=== PATIENT | female | born 1980 | race Caucasian/White ===

== ENCOUNTER 2024-11-24 16:24 | Emergency (ER) | payer OTHER, SELFPAY ==
[2024-11-24 16:37] VITALS: BP 128/87
[2024-11-24 16:55] LABS: Urine Character Bloody (Clear)
[2024-11-24 17:07] LABS: Urine Red Blood Cell >100 /HPF (0-2)
--- NOTE | 2024-11-24 17:25 | ED.GENMED ---
History of Present Illness
General
Chief Complaint: Urinary Symptoms
Source: patient
Exam Limitations: none
Time Seen by Provider: 11/24/24 16:59
Nursing documentation reviewed up to this point in time: agreed with
History of Present Illness
History of Present Illness:
Patient is a healthy 44-year-old female who presents to the emergency department with 1 day of dysuria and gross hematuria. Patient states while at work this morning she went to the bathroom and had significant burning while she was urinating. She
then noticed that her urine had a pink tinge in color. 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 She also reports passing a few small clots. She describes a sharp
pain which radiates into her lower abdomen after urinating.
She was seen by her primary care provider this afternoon where they performed a urinalysis which showed evidence of infection. She was given a prescription for Macrobid. She was also found to have protein in her urine and therefore was referred to
the emergency department for imaging.
Patient denies any fever or back pain. She has not had any vomiting. No abnormal vaginal bleeding or discharge.
Past History
Past History
ED Past Medical History: Other (admits to being an anxious person)
Social History
Tobacco: Non-smoker
Alcohol: None
Personal:
Living: with family
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
Family History
Family History: Sudden (brother age 36 '?sleep apnea?, heart attack?' states his did not do autopsy) and Other (Father with MS, still alive, mom healthy)
Review of Systems
Review of Systems
Allergies reviewed?: Yes
All Other Systems: ROS reviewed and negative except as documented in HPI and ROS
Phy Exam
Physical Exam
Physical Exam:
Vitals: Tachycardic on arrival however improved by my assessment. Afebrile
General: Patient is well appearing, no acute distress. Nontoxic appearing
Skin: Warm and dry, no rashes or lesions
Head: Normocephalic, atraumatic
Eyes: Sclera nonicteric. EOMs intact. No nystagmus.
Throat: Protecting airway
Neck: Normal ROM, no cervical spine tenderness, no meningismus
Cardiac: Regular rate and rhythm, no murmurs.
Pulm: Normal respiratory effort, no wheezes, rales, rhonchi heard on exam
Abdomen: Abdomen soft. Mild tenderness in suprapubic region. No rebound tenderness or guarding. No CVA tenderness.
Extremities: No evidence of cyanosis or edema
Neuro: AAOx3. Grossly intact.
Psychiatric: Normal affect.
Course
Orders/Labs/Results
Orders:
Orders
11/24/24 16:46
Urinalysis Reflex To Culture Urgent
Date Specimen was Collected: 11/24/24
Time Specimen was Collected: 16:41
Urine Microscopic Reflex Cult Urgent
Urine Culture Urgent
ANA LILIA Source: U
Specimen Description:
Date Specimen was Collected: 11/24/24
Time Specimen was Collected: 16:41
11/24/24 17:12
Abdomen/Pelvis wo Contrast CT [CT Abd/pelvis Wo Iv Cont] Urgent
Comment:
Reason For Exam: Dysuria, hematuria, hx kidney stones
0.9% Sodium Chloride 1000 ml [Nss] 1,000 ml IV BOLUS
11/24/24 17:14
Ketorolac [Toradol] 15 mg IV NOW STA
Test Result ONCE
11/24/24 17:30
Complete Blood Count/With Diff Urgent
Comprehensive Metabolic Panel Urgent
HCG, Serum Qualitative Screen Urgent
11/24/24 21:43
Add On - Microbiology Urgent
Tests Added?: urine culture
Abnormal Lab Results
11/24/24 11/24/24
16:46 17:30
WBC 11.3 H 10^3/uL
(4.8-10.8)
RBC 4.15 L 10^6/uL
(4.20-5.40)
Hgb 11.3 L g/dL
(12.0-16.0)
Hct 34.3 L %
(37.0-47.0)
MCHC 32.9 L g/dL
(33.0-37.0)
MPV 11.2 H fL
(7.4-10.4)
Abs Immat Gran (auto) 0.1 H 10^3/uL
(0-0.05)
Absolute Neuts (auto) 9.6 H 10^3/uL
(1.4-6.5)
Absolute Lymphs (auto) 0.9 L 10^3/uL
(1.2-3.4)
Absolute Monos (auto) 0.8 H 10^3/uL
(0.1-0.6)
Neutrophils % 84.3 H %
(42.2-75.2)
Lymphocytes % 8.2 L %
(20.5-51.1)
Sodium 134 L mmol/L
(135-145)
Ur Occult Blood Reflex 4+ A
(Negative)
Leukocyte Esterase Rfl 3+ A
(Negative)
Urine RBC >100 A /HPF
(0-2)
Urine Albumin (Reflex) 4+ A
(Neg - Trace)
11/24/24 17:30
11/24/24 17:30
Vital Signs
Initial and Last Documented VS:
Initial Vital Signs
Temp Pulse Resp BP Pulse Ox
99.1 F 113 18 128/87 99
11/24/24 16:37 11/24/24 16:37 11/24/24 16:37 11/24/24 16:37 11/24/24 16:37
Last Documented Vital Signs
Temp Pulse Resp BP Pulse Ox
99.1 F 104 18 105/73 100
10/13/25 16:37 11/24/24 19:46 11/24/24 19:46 11/24/24 19:43 11/24/24 19:44
MDM/Problems Addressed
Differential Diagnosis Includes:
Not limited to: UTI, pyelonephritis, renal colic, vaginitis, ovarian cyst, etc.
MDM/Problems Addressed:
44-year-old female presents with one day of dysuria and gross hematuria. She denies fever, flank pain, vomiting, or other systemic symptoms. Notably, she has a history of nephrolithiasis.
On exam, she is non-toxic appearing, afebrile, and hemodynamically stable. Abdomen is benign with no CVA tenderness. While she was initially tachycardic on arrival, this resolved during her ED stay.
Laboratory evaluation shows very mild leukocytosis. Chemistry panel is within normal limits. Urinalysis reveals many RBCs and 3+ leukocyte esterase, consistent with a urinary tract infection.
Given her history of kidney stones and the presence of gross hematuria, a noncontrast CT abdomen/pelvis was obtained to rule out nephrolithiasis or obstructive uropathy. Imaging shows no stones or hydronephrosis but is consistent with findings of
acute cystitis.
There is no evidence of ascending infection or complicated pyelonephritis. Hemoglobin is stable. The patient is tolerating oral intake and ambulating without issue. She was previously started on antibiotics by her PCP; these will be continued.
Pyridium was added for symptomatic relief.
Patient is stable for discharge with strict return precautions and instructions to follow up with her PCP to monitor for resolution of proteinuria or hematuria post-infection.
Chronic conditions affecting care:
N/A
Acute Exacerbation and/or Progression of Chronic Illness:
N/A
*Radiology
Radiology exam reviewed: radiology read reviewed
*Pulse Oximetry
SaO2: 99
Oxygen Mode of Delivery: Room air
Patient hypoxic: no
*EKG
Interpreted by ED Provider?: NA
*Automotive Service Advisor Interpretation
Rate: Automotive Service Advisor- N/A
*Critical Care Note
Total Time (30-74mins, 75-104mins- exclusive of procedures): Not Applicable
ED Attending Note
-
Portions of this chart may have been created with voice recognition software.� Occasional wrong word or��sound alike� substitutions may have occurred due to the inherent limitations of voice recognition software.
Discharge Plan
Departure
Patient Disposition: Home (Routine Discharge)
Date of Disposition: 11/24/24
Time of Disposition: 19:01
Patient with high blood pressure during this ER visit?: No
Condition: Good
Discharge Problem:
Acute UTI
Instructions: Urinary Tract Infection, Adult (DC), Blood in the Urine (Hematuria), Adult (DC)
Prescriptions:
New
phenazopyridine [Pyridium] 200 mg tablet
200 mg PO TID PRN (Reason: Pain) Qty: 6 0RF
No Action
acetaminophen [Tylenol Extra Strength] 500 MG tablet
1,000 mg PO Q6HPRN PRN (Reason: pain)
cyanocobalamin (vitamin B-12) 1,000 MCG/ML solution
1,000 mcg SC .EVERY3 WKS
Patient Comments:
Pt states she hasn't taken it in3 months (noted 05/03/2019).
pantoprazole 40 MG tablet,delayed release (DR/EC)
40 mg PO DAILY Qty: 30 0RF
Referrals:
John Esquivel MD [Family Provider] - Follow up in 5-7 days
Activity Restrictions/Additional Instructions:
RETURN TO THE EMERGENCY DEPARTMENT WITH ANY FEVER, CHILLS, NAUSEA/VOMITING, SEVERE ABDOMINAL/BACK PAIN, PERSISTENT BLOOD IN URINE, WORSENING IN CURRENT SYMPTOMS, OR ANY OTHER CONCERNS
- As discussed�your urine appeared infected in the emergency department. Your hemoglobin was stable. Your CT scan showed findings consistent with a bladder infection however no evidence of obstructing kidney stones.
- Please complete antibiotic as prescribed by your primary care. I have sent a medication to help with any urinary discomfort which you can take 3 times a day for the next 2 days as needed.
- It is important stay well-hydrated. Take Tylenol/Motrin as needed for discomfort
- Follow-up with your primary care for further evaluation/management to ensure that your symptoms are improving. Please ensure that you have a repeat urinalysis performed to ensure the protein in your urine resolves following infection.
Monitor your symptoms closely and return to the emergency department with any acute worsening/new symptoms or any other concerns
Interventions
Interventions:
*Risk Screen - Suicide Last Done: 11/24/24 19:46
*General Assessment Last Done: 11/24/24 19:46
*Neglect/Abuse Screening Last Done: 11/24/24 19:46
*ED- Fall Risk Assessment Last Done: 11/24/24 19:46
*ED COVID-19 Vaccine History Last Done: 11/24/24 19:46
*ED Influenza Vaccine History Last Done: 11/24/24 19:46
*Nursing Disposition Last Done: 11/24/24 19:46
ED-Female Genitourinary Assessment Last Done: 11/24/24 18:47
Discharge Date and Time
Discharge Date/Time: 11/24/24 19:52
Print Language: BELIZEAN
[2024-11-24] MEDS: TORADOL 15 MG IV (17:33)
[2024-11-24] MEDS: NSS 1000 IV (17:34)
[2024-11-24 17:46] LABS: Hematocrit 34.3 % (37.0-47.0); Hemoglobin 11.3 g/dL (12.0-16.0); Mean Corp Hgb Conc. 32.9 g/dL (33.0-37.0); Mean Corpuscular Volume 82.7 fL (81.0-99.0); Nucleated Red Blood Cells % 0 %; Platelet Count 245 10^3/uL (130-400); Red Cell Dist. Width 14.1 % (11.5-14.5)
[2024-11-24 17:49] LABS: HCG, Serum Qualitative Screen Negative
[2024-11-24 17:59] LABS: ALT (SGPT) 24 U/L (0-35); AST (SGOT) 24 U/L (14-36); Albumin 4.4 g/dl (3.5-5.0); Alkaline Phosphatase 53 U/L (38-126); Blood Urea Nitrogen 14 mg/dl (7-17); Calcium 9.4 mg/dl (8.4-10.2); Carbon Dioxide 27 mmol/L (22-30); Chloride 103 mmol/L (98-107); Glucose 84 mg/dl (70-99); Potassium 3.8 mmol/L (3.5-5.1); Sodium 134 mmol/L (135-145); Total Protein 7.2 g/dl (6.3-8.2); eGFR > 60.00
[2024-11-24 18:16] VITALS: BP 108/70
[2024-11-24 18:17] VITALS: BP 108/70
[2024-11-24 19:43] VITALS: BP 105/73
== END 2024-11-24 19:52 | disposition home or self-care (01) ==
LOC: EMR 16:24
PROVIDERS: Physician Assistant; EMERGENCY PHYSICIAN Emergency Medicine; FAMILY PHYSICIAN Family Medicine
DX: N39.0 Urinary tract infection, site not specified (principal); Z87.442 Personal history of urinary calculi
CPT/HCPCS: 99284; 96374; 96361; 74176; 80053; 81003; 81015; 84703; 85025; 87086; 87088; 87186